=== PATIENT | male | born 1950 | race Asian ===

== ENCOUNTER 2020-08-24 01:17 | Inpatient (IN) | payer MEDICARE, OTHER ==
[~2020-08-24] VITALS: Ht 165.1 cm; Wt 59.0 kg
[2020-08-24 03:10] VITALS: BP 148/90
--- NOTE | 2020-08-24 03:10 | NUR ---
GPS RN-ADMISSION NOTES: ADMITTED A 69-YR OLD MALE, FROM [facility]. ADMITTED ON 5150 FOR DTS/DTO. PER HOLD, PATIENT WAS TRYING TO LEAVE THE HOUSE TO GO BACK TO [place]. WHILE LEAVING THE HOUSE PATIENT STUCK HIS IN THE ARM LEAVING BRUISING. HIS USHA SADLER, STATED HE HAS BECOME PHYSICAL WITH THE FAMILY RECENTLY. UPON FACE TO FACE ASSESSMENT, PATIENT IS A/OX2, COOPERATIVE, ANXIOUS, DISORGANIZED AND SPEAKS CANTONESE. PT WAS ADVISED OF HIS HOLD. PT'S RIGHTS HANDBOOK AND A GUIDE TO PRESCRIPTION MEDICATIONS GIVEN. IN NO APPARENT DISTRESS NOTED. BELONGINGS WERE INVENTORIED AND CHECKED FOR CONTRABAND. PT. IS UNDER THE PSYCHIATRIC CARE OF DR. LERMA ORDERS OBTAINED, AND UNDER THE MEDICAL CARE OF DR. HAILE. SKIN BODY ASSESSMENT DONE. SKIN IS INTACT. DENIES PAIN OR DISCOMFORT AT THIS TIME. SAFETY PRECAUTIONS IN PLACE. BED IN LOCKED AND IN LOWEST POSITION. SIDE RAILS UP X2. WILL CONTINUE TO MONITOR Q15 MIN ROUNDS FOR SAFETY AND BEHAVIOR.
[2020-08-24] MEDS ORDERED: LORAZEPAM 0.5 MG TABLET PO PRN (03:30)
[2020-08-24] MEDS ORDERED: ACETAMINOPHEN 325 MG TABLET PO PRN (03:30)
[2020-08-24] MEDS ORDERED: TEMAZEPAM 7.5 MG CAPSULE PO PRN (03:30)
[2020-08-24] MEDS ORDERED: MAG HYDROX/AL HYDROX/SIMETH 30 ML UDC PO PRN (03:30)
[2020-08-24] MEDS ORDERED: BLOOD SUGAR DIAGNOSTIC 1 EACH STRIP IN ONE (03:30)
[2020-08-24] MEDS ORDERED: MAGNESIUM HYDROXIDE 30 ML UDC PO PRN (03:30)
[2020-08-24] MEDS ORDERED: CEPH500T PO (03:41)
[2020-08-24] MEDS ORDERED: CANA300T PO (07:37)
[2020-08-24] MEDS ORDERED: LISI10TA29 PO (07:37)
[2020-08-24] MEDS ORDERED: ATOR80TA PO (07:37)
[2020-08-24] MEDS ORDERED: CHOL200059 PO (07:37)
[2020-08-24] MEDS ORDERED: DONE10TA44 PO (07:37)
[2020-08-24] MEDS ORDERED: METO50TA16 PO (07:37)
[2020-08-24] MEDS ORDERED: GLIP10TA11 PO (07:37)
[2020-08-24] MEDS ORDERED: AMLO-212 PO (07:37)
[2020-08-24] MEDS ORDERED: FENO160T PO (07:37)
[2020-08-24] MEDS ORDERED: ASPI-1420 PO (07:37)
[2020-08-24 08:00] VITALS: BP 142/92
--- NOTE | 2020-08-24 09:00 | NUR ---
RN-CO: PATIENT WAS SEEN AND EXAMINED BY DR BILLINGSLEY AND RECONCILED HOME MEDICATIONS.
[2020-08-24] MEDS: glipiZIDE 10 MG TABLET PO SCH ×2 (10:41→16:22)
[2020-08-24 16:00] VITALS: BP 144/86
[2020-08-24] MEDS: METOPROLOL TARTRATE 50 MG TABLET PO SCH (16:23)
[2020-08-24 20:00] VITALS: BP 110/67
[2020-08-24] MEDS: QUETIAPINE FUMARATE 25 MG TABLET PO SCH (21:51)
[2020-08-24] MEDS: DIVALPROEX SODIUM 250 MG TABLET.DR PO SCH (21:51)
[2020-08-25 08:00] VITALS: BP 137/82
[2020-08-25] MEDS: LISINOPRIL (20MG) 20 MG TABLET PO SCH (08:30)
[2020-08-25] MEDS: ATORVASTATIN 40 MG TABLET PO SCH (08:31)
[2020-08-25] MEDS: CHOLECALCIFEROL 1,000 UNIT TABLET (VIT D3) PO SCH (08:31)
[2020-08-25] MEDS: AMLODIPINE BESYLATE 5 MG TABLET PO SCH (08:31)
[2020-08-25] MEDS: Fenofibrate 48 MG TABLET PO SCH (08:32)
[2020-08-25] MEDS: glipiZIDE 10 MG TABLET PO SCH ×2 (08:32→16:18)
[2020-08-25] MEDS: ASPIRIN EC 81 MG TABLET.DR PO SCH (08:33)
[2020-08-25] MEDS: METOPROLOL TARTRATE 50 MG TABLET PO SCH ×2 (08:33→16:17)
[2020-08-25] MEDS ORDERED: DONEPEZIL 5 MG TABLET PO SCH (09:00)
[2020-08-25] MEDS: DIVALPROEX SODIUM 250 MG TABLET.DR PO SCH ×2 (09:11→21:20)
--- NOTE | 2020-08-25 11:24 | NUR ---
RN-Co: Called family member Tank and asked if they could bring the Invokana for DM. He said they will bring it.
--- NOTE | 2020-08-25 15:09 | NUR ---
Family Contact: SW called the pts son in law, Tank ([phone]), and informed him that the SW wanted to discuss the pts treatment and discharge plan. Pts son in law involved the pts , Celestina ([phone]), in the discussion and translated for the SW. Pts son in law and stated that they would want the pt to return to the home but they are not certain at this time as the pt was aggressive. SW provided psychoeducation on dementia and recommended a mcc with dementia care. SW stated that she will call the son in law back the following day so that the family can have time to discuss discharge plan.
[2020-08-25 16:00] VITALS: BP 135/80
--- NOTE | 2020-08-25 16:30 | NUR ---
Initial Discharge Plan: Pt currently resides at home with his and daughter located at [address] [place] [address]. Per pts son in law, Tank ([phone]), the family will discuss whether the pt can return to the home or if he will need a SNF. SW will work with the pt, pts family, and MD regarding appropriate discharge planning. SW will form a safe and proper discharge.
--- NOTE | 2020-08-25 17:33 | NUR ---
RN-CO: REFUSED LAB WORKS ENC 3X .
--- NOTE | 2020-08-25 19:30 | NUR ---
GPS RN NOTE, RECEIVED PATIENT AWAKE AND IN BED IN ROOM, NO S/S OR COMPLAINTS OF PAIN AT THIS TIME. PATIENT IS DISPLAYING NO S/S OF APPARENT DISTRESS AT THIS TIME. PATIENT BREATHING IS UNLABORED WITH EQUAL RISE AND FALL OF THE CHEST. PATIENT IS ALERT AND ORIENTED X 1-2 ON ROOM AIR WITH A SPO2 99%. PATIENT SPEAKS CANTONESE AND CITIZEN OF [place] AND [place] ONLY. PATIENT IS COMPLIANT WITH MEDICATIONS, CONFUSED, NEEDS LOTS OF REDIRECTION, AND COOPERATIVE. PATIENT DENIES SUICIDAL AND HOMICIDAL IDEATIONS AT THIS TIME. PATIENT ASSISTED WITH TURNING AND REPOSITIONING Q2HR AND PRN FOR COMFORT AND CIRCULATION. PATIENT HAS NO NEEDS AT THIS TIME. PATIENT EDUCATED ON THE USE OF THE CALL NUNEZ. PATIENT BED SIDE RAILS ARE UP X 2 FOR SAFETY, BED IS LOCKED, AND LOW. WILL CONTINUE TO MONITOR THIS PATIENT Q15 MINUTES WITH THE HELP OF STAFF TO MAINTAIN SAFETY.
[2020-08-25 20:00] VITALS: BP 113/68
[2020-08-25] MEDS: QUETIAPINE FUMARATE 25 MG TABLET PO SCH (21:20)
[2020-08-25] MEDS ORDERED: BLOOD SUGAR DIAGNOSTIC 1 EACH STRIP IN ONE (22:00)
--- NOTE | 2020-08-25 22:02 | NUR ---
GPS RN NOTE, PERFORMED ACCU CHECK ON PATIENT WITH A BLOOD SUGAR RESULT OF 298. PATIENT IS TAKING GLIPIZIDE 20 MG PO BID AND PATIENT FAMILY BROUGHT IN INVOKANA 300MG PO DAILY THAT STARTS AT 0900 08/26/2020. PAGED [facility] AND INFORMED DR BISHOP OF MY FINDINGS. DR BISHOP ORDERED MILD INSULIN SLIDING SCALE AND ACCU CHECKS ACHS. ALL ORDERS NOTED AND CARRIED OUT. WILL CONTINUE TO MONITOR MONITOR THIS PATIENT.
[2020-08-25] MEDS ORDERED: INSULIN REGULAR, HUMAN 100 UNIT/ML 3 ML VIAL SQ PRN (22:30)
[2020-08-25] MEDS ORDERED: DEXTROSE 50%-WATER 50 ML DISP.SYRIN IV PRN ×2 (22:30)
[2020-08-25] MEDS ORDERED: *INSULIN REGULAR(HUMULIN R)HUM 100 UNIT/ML VIAL SQ PRN (22:30)
[2020-08-25] MEDS: INSULIN REGULAR, HUMAN 100 UNIT/ML 3 ML VIAL SQ PRN (22:54)
[2020-08-26] MEDS: BLOOD SUGAR DIAGNOSTIC 1 EACH STRIP IN SCH ×4 (07:02→21:35)
[2020-08-26] MEDS ORDERED: BLOOD SUGAR DIAGNOSTIC 1 EACH STRIP VI SCH (07:30)
[2020-08-26 08:36] LABS: ALBUMIN 2.9 g/dL (3.4-5.0); BILIRUBIN,TOTAL 0.3 mg/dL (0.2-1.0); CALCIUM, SERUM 8.7 mg/dL (8.5-10.1); CREATININE 0.9 mg/dL (0.6-1.3); POTASSIUM 3.3 mmol/L (3.5-5.1); TOTAL PROTEIN, SERUM 6.5 g/dL (6.4-8.2)
[2020-08-26 08:38] LABS: CHOLESTEROL 147 mg/dL (<200); HDL CHOLESTEROL 44 mg/dL (40-60); LDL 84 mg/dL (0-99); TRIGLYCERIDES 221 mg/dL (30-150)
[2020-08-26] MEDS: ATORVASTATIN 40 MG TABLET PO SCH (08:56)
[2020-08-26] MEDS: Fenofibrate 48 MG TABLET PO SCH (08:56)
[2020-08-26] MEDS: glipiZIDE 10 MG TABLET PO SCH ×2 (08:56→17:05)
[2020-08-26] MEDS: CHOLECALCIFEROL 1,000 UNIT TABLET (VIT D3) PO SCH (08:56)
[2020-08-26] MEDS: ASPIRIN EC 81 MG TABLET.DR PO SCH (08:56)
[2020-08-26] MEDS: DIVALPROEX SODIUM 250 MG TABLET.DR PO SCH ×2 (08:56→21:35)
[2020-08-26] MEDS: LISINOPRIL (20MG) 20 MG TABLET PO SCH (08:57)
[2020-08-26] MEDS: METOPROLOL TARTRATE 50 MG TABLET PO SCH ×2 (08:57→17:06)
[2020-08-26] MEDS: AMLODIPINE BESYLATE 5 MG TABLET PO SCH (08:59)
--- NOTE | 2020-08-26 09:00 | NUR ---
RN NOTE- PT DIFFICULT TO COMMUNICATE WITH BUT CAN UNDERSTAND MED COMPLIANT BUT RESERVED AND A BIT OPPOSITIONAL, DENIES PAIN OR SI HI AH VH PO INTAKE GOOD. LABS BACK A1C AT 11. DR BILLINGSLEY AWARE. WILL MONITOR THROUGH DAY
[2020-08-26] MEDS: CANAGLIFLOZIN 300 MG PO SCH (09:01)
[2020-08-26] MEDS ORDERED: POTASSIUM CHLORIDE 20 MEQ TAB.PRT.SR PO ONE (10:00)
[2020-08-26 10:35] VITALS: BP 126/69
[2020-08-26] MEDS: INSULIN REGULAR, HUMAN 100 UNIT/ML 3 ML VIAL SQ PRN ×2 (11:58→17:07)
--- NOTE | 2020-08-26 13:49 | NUR ---
Family Contact: SW called the pts son in law, Tank ([phone]), to follow up on what the family wants as the pts discharge plan. Pts family is requesting that the SW send a referral to [facility]. SW stated that she would send a referral to that facility as well as some others to have some options.
[2020-08-26 16:04] VITALS: BP 119/72
--- NOTE | 2020-08-26 19:30 | NUR ---
GPS RN NOTE, RECEIVED PATIENT AWAKE AND IN BED IN ROOM, NO S/S OR COMPLAINTS OF PAIN AT THIS TIME. PATIENT IS DISPLAYING NO S/S OF APPARENT DISTRESS AT THIS TIME. PATIENT BREATHING IS UNLABORED WITH EQUAL RISE AND FALL OF THE CHEST. PATIENT IS ALERT AND ORIENTED X 1-2 ON ROOM AIR WITH A SPO2 98%. PATIENT SPEAKS CANTONESE AND [place]OL[place] ONLY. PATIENT IS COMPLIANT WITH MEDICATIONS, CONFUSED, NEEDS LOTS OF REDIRECTION, AND COOPERATIVE. PATIENT DENIES SUICIDAL AND HOMICIDAL IDEATIONS AT THIS TIME. PATIENT ASSISTED WITH TURNING AND REPOSITIONING Q2HR AND PRN FOR COMFORT AND CIRCULATION. PATIENT HAS NO NEEDS AT THIS TIME. PATIENT EDUCATED ON THE USE OF THE CALL NUNEZ. PATIENT BED SIDE RAILS ARE UP X 2 FOR SAFETY, BED IS LOCKED, AND LOW. WILL CONTINUE TO MONITOR THIS PATIENT Q15 MINUTES WITH THE HELP OF STAFF TO MAINTAIN SAFETY.
[2020-08-26 19:46] VITALS: BP 145/87
--- NOTE | 2020-08-26 21:34 | NUR ---
GPS RN NOTE, PATIENT PERFORMED ACCU CHECK ON PATIENT WITH A BLOOD SUGAR RESULT OF 103. NO INSULIN GIVEN PER SLIDING SCALE. SNAKE GIVEN, WILL CONTINUE TO MONITOR PATIENT.
[2020-08-26] MEDS: QUETIAPINE FUMARATE 25 MG TABLET PO SCH (21:35)
[2020-08-27] MEDS: BLOOD SUGAR DIAGNOSTIC 1 EACH STRIP IN SCH ×4 (07:56→21:51)
[2020-08-27 08:00] VITALS: BP 136/77
--- NOTE | 2020-08-27 09:00 | NUR ---
RN NOTE-PT MED COMPLIANT BUT RESERVED AND A BIT OPPOSITIONAL, DENIES PAIN OR SI HI AH VH PO INTAKE GOOD.
[2020-08-27] MEDS: Fenofibrate 48 MG TABLET PO SCH (09:07)
[2020-08-27] MEDS: ASPIRIN EC 81 MG TABLET.DR PO SCH (09:08)
[2020-08-27] MEDS: DIVALPROEX SODIUM 250 MG TABLET.DR PO SCH ×2 (09:08→21:46)
[2020-08-27] MEDS: AMLODIPINE BESYLATE 5 MG TABLET PO SCH (09:08)
[2020-08-27] MEDS: CHOLECALCIFEROL 1,000 UNIT TABLET (VIT D3) PO SCH (09:08)
[2020-08-27] MEDS: ATORVASTATIN 40 MG TABLET PO SCH (09:08)
[2020-08-27] MEDS: glipiZIDE 10 MG TABLET PO SCH ×2 (09:08→16:39)
[2020-08-27] MEDS: LISINOPRIL (20MG) 20 MG TABLET PO SCH (09:09)
[2020-08-27] MEDS: METOPROLOL TARTRATE 50 MG TABLET PO SCH ×2 (09:09→16:40)
[2020-08-27] MEDS: CANAGLIFLOZIN 300 MG PO SCH (10:59)
[2020-08-27] MEDS: INSULIN REGULAR, HUMAN 100 UNIT/ML 3 ML VIAL SQ PRN (12:02)
[2020-08-27 16:00] VITALS: BP 116/66
--- NOTE | 2020-08-27 19:30 | NUR ---
GPS RN NOTE, RECEIVED PATIENT AWAKE AND IN BED IN ROOM, NO S/S OR COMPLAINTS OF PAIN AT THIS TIME. PATIENT IS DISPLAYING NO S/S OF APPARENT DISTRESS AT THIS TIME. PATIENT BREATHING IS UNLABORED WITH EQUAL RISE AND FALL OF THE CHEST. PATIENT IS ALERT AND ORIENTED X 1-2 ON ROOM AIR WITH A SPO2 98%. PATIENT SPEAKS CANTONESE AND [place] ONLY. PATIENT IS COMPLIANT WITH MEDICATIONS, CONFUSED, NEEDS LOTS OF REDIRECTION, AND COOPERATIVE. PATIENT DENIES SUICIDAL AND HOMICIDAL IDEATIONS AT THIS TIME. PATIENT ASSISTED WITH TURNING AND REPOSITIONING Q2HR AND PRN FOR COMFORT AND CIRCULATION. PATIENT HAS NO NEEDS AT THIS TIME. PATIENT EDUCATED ON THE USE OF THE CALL NUNEZ. PATIENT BED SIDE RAILS ARE UP X 2 FOR SAFETY, BED IS LOCKED, AND LOW. WILL CONTINUE TO MONITOR THIS PATIENT Q15 MINUTES WITH THE HELP OF STAFF TO MAINTAIN SAFETY.
[2020-08-27 20:50] VITALS: BP 130/80
[2020-08-27] MEDS: QUETIAPINE FUMARATE 25 MG TABLET PO SCH (21:46)
--- NOTE | 2020-08-27 21:51 | NUR ---
GPS RN NOTE, PATIENT PERFORMED ACCU CHECK ON PATIENT WITH A BLOOD SUGAR RESULT OF 94. NO INSULIN GIVEN PER SLIDING SCALE. SNACK GIVEN, WILL CONTINUE TO MONITOR PATIENT.
[2020-08-28] MEDS: BLOOD SUGAR DIAGNOSTIC 1 EACH STRIP IN SCH ×4 (07:35→21:23)
[2020-08-28 08:00] VITALS: BP 101/65
[2020-08-28] MEDS: ASPIRIN EC 81 MG TABLET.DR PO SCH ×2 (08:55→09:00)
[2020-08-28] MEDS: glipiZIDE 10 MG TABLET PO SCH ×3 (08:55→16:09)
[2020-08-28] MEDS: ATORVASTATIN 40 MG TABLET PO SCH ×2 (08:55→09:00)
[2020-08-28] MEDS: DIVALPROEX SODIUM 250 MG TABLET.DR PO SCH ×2 (08:55→21:29)
[2020-08-28] MEDS: CHOLECALCIFEROL 1,000 UNIT TABLET (VIT D3) PO SCH (08:55)
[2020-08-28] MEDS: Fenofibrate 48 MG TABLET PO SCH (08:55)
[2020-08-28] MEDS: AMLODIPINE BESYLATE 5 MG TABLET PO SCH (08:56)
[2020-08-28] MEDS: METOPROLOL TARTRATE 50 MG TABLET PO SCH ×3 (08:56→16:54)
[2020-08-28] MEDS: LISINOPRIL (20MG) 20 MG TABLET PO SCH (08:57)
[2020-08-28] MEDS: CANAGLIFLOZIN 300 MG PO SCH ×2 (08:59→09:00)
--- NOTE | 2020-08-28 15:19 | NUR ---
RN-CO: PATIENT WAS OFFERED FLU AND PNA VACCINE BUT HE REFUSED.
[2020-08-28 16:00] VITALS: BP 135/83
[2020-08-28 20:00] VITALS: BP 139/84
[2020-08-28] MEDS: INSULIN REGULAR, HUMAN 100 UNIT/ML 3 ML VIAL SQ PRN (21:29)
[2020-08-28] MEDS: QUETIAPINE FUMARATE 25 MG TABLET PO SCH (21:29)
--- NOTE | 2020-08-29 07:25 | NUR ---
GPS RN NOTE PATIENT IN BED RESTING, AWAKE AND RESPONSIVE. NO APPARENT DISTRESS AT THIS TIME. BREATHING EVEN AND UNLABORED, ON ROOM AIR. PATIENT SPEAKS CANTONESE AND [place] ONLY, UNDERSTANDS SOME SPANISH. DENIES SUICIDAL AND HOMICIDAL IDEATIONS AT THIS TIME. SAFETY PRECAUTIONS IN PLACE: SIDE RAILS ARE UP X 2, BED LOCKED AND ON LOWEST POSITION. WILL CONTINUE TO MONITOR.
[2020-08-29] MEDS: BLOOD SUGAR DIAGNOSTIC 1 EACH STRIP IN SCH ×4 (07:34→21:18)
[2020-08-29] MEDS: INSULIN REGULAR, HUMAN 100 UNIT/ML 3 ML VIAL SQ PRN ×3 (07:35→17:16)
[2020-08-29 08:00] VITALS: BP 137/73
[2020-08-29] MEDS: ASPIRIN EC 81 MG TABLET.DR PO SCH (08:48)
[2020-08-29] MEDS: Fenofibrate 48 MG TABLET PO SCH (08:49)
[2020-08-29] MEDS: CHOLECALCIFEROL 1,000 UNIT TABLET (VIT D3) PO SCH (08:49)
[2020-08-29] MEDS: DIVALPROEX SODIUM 250 MG TABLET.DR PO SCH ×2 (08:49→20:45)
[2020-08-29] MEDS: AMLODIPINE BESYLATE 5 MG TABLET PO SCH (08:49)
[2020-08-29] MEDS: glipiZIDE 10 MG TABLET PO SCH ×2 (08:49→16:42)
[2020-08-29] MEDS: METOPROLOL TARTRATE 50 MG TABLET PO SCH ×2 (08:50→16:43)
[2020-08-29] MEDS: ATORVASTATIN 40 MG TABLET PO SCH (08:50)
[2020-08-29] MEDS: LISINOPRIL (20MG) 20 MG TABLET PO SCH (08:50)
[2020-08-29] MEDS: CANAGLIFLOZIN 300 MG PO SCH (09:00)
--- NOTE | 2020-08-29 11:26 | NUR ---
SNF Referral: SW faxed a referral to the following three facilities: [facility] with attn to Debbi to the fax number: [phone] [facility] with attn to Presley to the fax number: [phone] [facility] with attn to Admissions to the fax number: [phone].
[2020-08-29 16:00] VITALS: BP 128/72
--- NOTE | 2020-08-29 19:11 | NUR ---
GPS RN NOTES PATIENT IN THE ROOM RESTING IN BED, VERBALLY RESPONSIVE, NOT IN ACUTE DISTRESS. BREATHING EVEN AND UNLABORED, CONTINUE TO TOLERATE ROOM AIR. DENIES SI/HI. DUE MEDS TAKEN BY PATIENT. SAFETY PRECS MAINTAINED. ENDORSED TO SAND POLISHER RN FOR RAMY.
[2020-08-29 20:00] VITALS: BP 123/70
[2020-08-29] MEDS: QUETIAPINE FUMARATE 25 MG TABLET PO SCH (21:07)
[2020-08-30] MEDS: BLOOD SUGAR DIAGNOSTIC 1 EACH STRIP IN SCH ×4 (07:02→21:26)
[2020-08-30 08:00] VITALS: BP 131/77
[2020-08-30] MEDS: CHOLECALCIFEROL 1,000 UNIT TABLET (VIT D3) PO SCH (09:04)
[2020-08-30] MEDS: glipiZIDE 10 MG TABLET PO SCH ×2 (09:04→17:09)
[2020-08-30] MEDS: ASPIRIN EC 81 MG TABLET.DR PO SCH (09:04)
[2020-08-30] MEDS: ATORVASTATIN 40 MG TABLET PO SCH (09:05)
[2020-08-30] MEDS: METOPROLOL TARTRATE 50 MG TABLET PO SCH ×2 (09:05→17:00)
[2020-08-30] MEDS: AMLODIPINE BESYLATE 5 MG TABLET PO SCH (09:06)
[2020-08-30] MEDS: Fenofibrate 48 MG TABLET PO SCH (09:06)
[2020-08-30] MEDS: DIVALPROEX SODIUM 250 MG TABLET.DR PO SCH ×2 (09:07→20:08)
[2020-08-30] MEDS: LISINOPRIL (20MG) 20 MG TABLET PO SCH (09:07)
[2020-08-30] MEDS: CANAGLIFLOZIN 300 MG PO SCH (09:46)
--- NOTE | 2020-08-30 14:35 | NUR ---
Family Contact: VIVIANA called the pts daughter, Meghan ([phone]), and left her a voicemail stating that the SW spoke with [facility] and informed them that the SW sent a referral the following day. VIVIANA stated that she will follow up with her when there is an update.
[2020-08-30 16:00] VITALS: BP 118/75
[2020-08-30] MEDS: INSULIN REGULAR, HUMAN 100 UNIT/ML 3 ML VIAL SQ PRN ×2 (17:44→21:28)
[2020-08-30 20:19] VITALS: BP 134/77
[2020-08-30] MEDS: QUETIAPINE FUMARATE 25 MG TABLET PO SCH (21:19)
--- NOTE | 2020-08-31 06:37 | NUR ---
RN NOTES: PATIENT RESTING IN ROOM. NO S/S OF DISTRESS. NO CHANGE OF CONDITION NOTED, SAFETY PRECAUTION MAINTAINED, ALL PATIENT CARE NEEDS MET AT THIS TIME. WILL CONTINUE TO MONITOR PATIENT FOR MOOD, BEHAVIOR AND SAFETY AND ENDORSE TO AM SHIFT FOR CONTINUITY CARE.
[2020-08-31 08:00] VITALS: BP 121/82
--- NOTE | 2020-08-31 08:00 | NUR ---
STAYING TO SELF MOSTLY.NO DISTRESS.MED COMPLIANT.
[2020-08-31] MEDS: BLOOD SUGAR DIAGNOSTIC 1 EACH STRIP IN SCH ×4 (08:28→21:53)
[2020-08-31] MEDS: ASPIRIN EC 81 MG TABLET.DR PO SCH (09:24)
[2020-08-31] MEDS: Fenofibrate 48 MG TABLET PO SCH (09:24)
[2020-08-31] MEDS: DIVALPROEX SODIUM 250 MG TABLET.DR PO SCH ×2 (09:24→21:53)
[2020-08-31] MEDS: glipiZIDE 10 MG TABLET PO SCH ×2 (09:25→17:22)
[2020-08-31] MEDS: ATORVASTATIN 40 MG TABLET PO SCH (09:25)
[2020-08-31] MEDS: CHOLECALCIFEROL 1,000 UNIT TABLET (VIT D3) PO SCH (09:25)
[2020-08-31] MEDS: METOPROLOL TARTRATE 50 MG TABLET PO SCH ×2 (09:26→17:00)
[2020-08-31] MEDS: CANAGLIFLOZIN 300 MG PO SCH (09:39)
[2020-08-31] MEDS: AMLODIPINE BESYLATE 5 MG TABLET PO SCH (11:55)
[2020-08-31] MEDS: INSULIN REGULAR, HUMAN 100 UNIT/ML 3 ML VIAL SQ PRN ×3 (12:18→21:56)
[2020-08-31] MEDS: LISINOPRIL (20MG) 20 MG TABLET PO SCH (13:20)
--- NOTE | 2020-08-31 14:43 | NUR ---
Family Contact: VIVIANA called the pts daughter, Meghan ([phone]), and left her a voicemail stating that the pt will be discharged home on Saturday.
[2020-08-31 16:00] VITALS: BP 115/59
--- NOTE | 2020-08-31 16:38 | NUR ---
Family Contact: Pts daughter, Meghan ([phone]), called the SW and stated that she will come burr picker the pt around 6pm on Saturday.
[2020-08-31 19:55] VITALS: BP 109/58
[2020-08-31] MEDS: QUETIAPINE FUMARATE 25 MG TABLET PO SCH (21:53)
[2020-09-01 08:00] VITALS: BP 110/67
[2020-09-01] MEDS: Fenofibrate 48 MG TABLET PO SCH (08:37)
[2020-09-01] MEDS: BLOOD SUGAR DIAGNOSTIC 1 EACH STRIP IN SCH ×4 (08:37→21:49)
[2020-09-01] MEDS: ATORVASTATIN 40 MG TABLET PO SCH (08:37)
[2020-09-01] MEDS: CHOLECALCIFEROL 1,000 UNIT TABLET (VIT D3) PO SCH (08:37)
[2020-09-01] MEDS: DIVALPROEX SODIUM 250 MG TABLET.DR PO SCH ×2 (08:38→20:20)
[2020-09-01] MEDS: glipiZIDE 10 MG TABLET PO SCH ×2 (08:38→16:43)
[2020-09-01] MEDS: ASPIRIN EC 81 MG TABLET.DR PO SCH (08:38)
[2020-09-01] MEDS: METOPROLOL TARTRATE 50 MG TABLET PO SCH ×2 (08:39→16:44)
[2020-09-01] MEDS: CANAGLIFLOZIN 300 MG PO SCH (08:45)
[2020-09-01] MEDS: LISINOPRIL (20MG) 20 MG TABLET PO SCH (09:00)
[2020-09-01] MEDS: AMLODIPINE BESYLATE 5 MG TABLET PO SCH (09:00)
[2020-09-01] MEDS: INSULIN REGULAR, HUMAN 100 UNIT/ML 3 ML VIAL SQ PRN ×3 (12:32→22:20)
[2020-09-01 16:00] VITALS: BP 132/75
[2020-09-01 20:26] VITALS: BP 120/80
[2020-09-01] MEDS: QUETIAPINE FUMARATE 25 MG TABLET PO SCH (21:49)
[2020-09-02] MEDS: BLOOD SUGAR DIAGNOSTIC 1 EACH STRIP IN SCH ×3 (07:30→17:13)
[2020-09-02 08:00] VITALS: BP 154/90
[2020-09-02] MEDS: CANAGLIFLOZIN 300 MG PO SCH (09:00)
[2020-09-02] MEDS: LISINOPRIL (20MG) 20 MG TABLET PO SCH (09:08)
[2020-09-02] MEDS: Fenofibrate 48 MG TABLET PO SCH (09:08)
[2020-09-02] MEDS: DIVALPROEX SODIUM 250 MG TABLET.DR PO SCH (09:08)
[2020-09-02] MEDS: ASPIRIN EC 81 MG TABLET.DR PO SCH (09:09)
[2020-09-02] MEDS: AMLODIPINE BESYLATE 5 MG TABLET PO SCH (09:09)
[2020-09-02] MEDS: glipiZIDE 10 MG TABLET PO SCH ×2 (09:09→17:19)
[2020-09-02] MEDS: ATORVASTATIN 40 MG TABLET PO SCH (09:09)
[2020-09-02] MEDS: CHOLECALCIFEROL 1,000 UNIT TABLET (VIT D3) PO SCH (09:09)
[2020-09-02] MEDS: METOPROLOL TARTRATE 50 MG TABLET PO SCH ×2 (09:09→17:00)
--- NOTE | 2020-09-02 09:44 | NUR ---
Home med/Invokana is not available.
--- NOTE | 2020-09-02 11:26 | NUR ---
Discharge Note: Pt [place] be [place] [address] [place] [address]; [phone]. Pt will be picked up by his daughter, Meghan ([phone]), around 5pm. Upon discharge, the pt appears to be in a euthymic mood and presents with a calm affect. Pt denies both suicidal and homicidal ideation as well as auditory and visual hallucinations. Pt appears to be alert and oriented x3. Pt appears to be well groomed and appropriately dressed. Pt appears to be ambulatory with an unsteady gait. Pt will be under the care of his third helper, Dr. Carrington, [place] [address] [place] [address]; . Pt will also be under the care of psychiatrist, Janeth Gonsales, located at [address] [facility] [address] [address]; . The multidisciplinary exit care form was done, printed, signed, and given to the patient.
--- NOTE | 2020-09-02 12:35 | NUR ---
Patient received new medications with d/c, called pharmacy at [phone] and placed order by Liudmila.
[2020-09-02 16:00] VITALS: BP 119/70
--- NOTE | 2020-09-02 18:11 | NUR ---
Patient discharged to home, given discharge instruction to DTR include new medications/side effects, follow up PCP. Patient in stable condition, denies SI/HI.
== END 2020-09-02 18:15 | disposition home or self-care (01) | DRG 885 ==
LOC: GPS 02:58
PROVIDERS: ADMIT Psychiatry & Neurology Psychiatry; ATTEND Hospitalist
DX: F29 Unspecified psychosis not due to a substance or known physiological condition (principal); E11.65 Type 2 diabetes mellitus with hyperglycemia; F02.81 Dementia in other diseases classified elsewhere, unspecified severity, with behavioral disturbance; E44.1 Mild protein-calorie malnutrition; F41.9 Anxiety disorder, unspecified; G30.9 Alzheimer's disease, unspecified; Z86.73 Personal history of transient ischemic attack (TIA), and cerebral infarction without residual deficits; E78.5 Hyperlipidemia, unspecified; I10 Essential (primary) hypertension; E87.6 Hypokalemia; E78.1 Pure hyperglyceridemia
CPT/HCPCS: 36415; 80053-TC; 80061-TC; 82962-TC; 87081-TC; 97116-TC; 97530-TC; J1815